=== PATIENT | female | born 1990 | race Asian ===

== ENCOUNTER 2018-03-06 07:01 | Inpatient (IN) | payer SELFPAY ==
[~2018-03-06] VITALS: Ht 152.4 cm; Wt 75.3 kg
[2018-03-13] MEDS ORDERED: NALBUPHINE 10 MG/ML AMP IVP PRN (01:00)
[2018-03-13] MEDS ORDERED: PROMETHAZINE 25 MG/ML VIAL IVP PRN (01:00)
[2018-03-13] MEDS ORDERED: OXYTOCIN 20 UNITS in LACTATED RINGERS 1,000 ML IV SCH (01:00)
[2018-03-13] MEDS ORDERED: METHYLERGONOVINE 0.2 MG/ML AMP IM PRN ×2 (01:00→07:40)
[2018-03-13 01:25] LABS: APPEARANCE,URINE SL CLOUDY (CLEAR); BILIRUBIN,URINE NEGATIVE (NEGATIVE); BLOOD, URINE NEGATIVE (NEGATIVE); COLOR,URINE YELLOW (YELLOW); LEUKOCYTE ESTERASE ,URINE 2+ (NEGATIVE); NITRITE, URINE NEGATIVE (NEGATIVE); PH,URINE 7.5 (5.0-9.0); UGLUCOSE NEGATIVE (NEGATIVE)
[2018-03-13 01:26] LABS: HEMATOCRIT 36.4 % (36-48); HEMOGLOBIN 11.9 g/dL (12.0-16.0); MEAN CORPUSCULAR VOLUME 83.7 fL (80-94); RED BLOOD CELL COUNT(AUTO) 4.34 MIL/uL (4.20-5.40); WHITE BLOOD COUNT (AUTO) 9.8 K/uL (4.8-10.8)
[2018-03-13 01:27] LABS: BASOPHILS % (AUTO) 0.7 % (0.0-2.0); EOSINOPHILS % (AUTO) 0.8 % (0.0-4.0); LYMPHOCYTES % (AUTO) 15.9 % (20.5-51.1); MEAN CORPUSCULAR HEMOGLOBIN 27 pg (27-31); MEAN CORPUSCULAR HGB CONC 33 g/dL (33-37); MONOCYTES % (AUTO) 7.9 % (1.7-9.3); NEUTROPHILS % (AUTO) 74.7 % (42.2-75.2); PLATELET COUNT (AUTO) 172 K/uL (140-450); RED CELL DISTRIBUTION WIDTH 12.6 % (11.6-13.7)
[2018-03-13 01:28] LABS: BASOPHILS # (AUTO) 0.1 K/uL (0.00-0.22); EOSINOPHILS # (AUTO) 0.1 K/uL (0-0.4); LYMPHOCYTES # (AUTO) 1.6 K/uL (2.5-16.5); MONOCYTES # (AUTO) 0.8 K/uL (0.8-1.0); NEUTROPHILS # (AUTO) 7.2 K/uL (1.8-7.7)
[2018-03-13] MEDS: LACTATED RINGERS 1,000 ML IV SCH ×5 (01:54→13:51)
[2018-03-13] MEDS ORDERED: MISOPROSTOL 25 MCG TAB ONE (01:55)
[2018-03-13] MEDS ORDERED: OXYTOCIN 10 UNITS/ML VIAL IM SCH (02:00)
[2018-03-13 03:06] LABS: RBC,URINE 0-5 (RARE) /HPF (0-5); WBC,URINE 16-25 (MOD) /HPF (0-5)
[2018-03-13] MEDS ORDERED: ROPIVACAINE 0.2%/NS PREMIX 250 ML EPI ONE ×2 (04:59→15:12)
[2018-03-13] MEDS ORDERED: AZITHROMYCIN 500 MG in DEXTROSE 5% 250 ML IV ONE (06:05)
[2018-03-13] MEDS ORDERED: OXYTOCIN 20 UNITS/LR PREMIX 1,000 ML IV ONE ×2 (06:57→23:38)
[2018-03-13] MEDS ORDERED: TEMAZEPAM 15 MG CAP PO PRN (07:40)
[2018-03-13] MEDS ORDERED: BENZOCAINE/MENTHOL 20%-0.5% 60 GM CAN TP PRN (07:40)
[2018-03-13] MEDS ORDERED: oxyCODONE/APAP 5/325 MG 1 TAB TAB PO PRN (07:40)
[2018-03-13] MEDS ORDERED: MEASLES, MUMPS, AND RUBELLA 1 VIAL SQVAC PRN (07:40)
[2018-03-13] MEDS ORDERED: OXYTOCIN 10 UNITS/ML VIAL IM PRN (07:40)
[2018-03-13 08:06] VITALS: BP 101/55
--- NOTE | 2018-03-13 08:10 | NUR ---
PATIENT HAS BEEN SCREENED AND CATEGORIZED LOW NUTRITION RISK. PATIENT WILL BE SEEN WITHIN 7 DAYS OF ADMISSION. 03/19/[address]
[2018-03-13] MEDS ORDERED: AMPICILLIN 2,000 MG VIAL ONE ×2 (13:50→20:02)
[2018-03-13] MEDS ORDERED: DOCUSATE SOD/SENNA 50/8.6 MG 1 TAB PO SCH (21:00)
[2018-03-13] MEDS ORDERED: OXYTOCIN 10 UNITS/ML VIAL ONE (21:04)
[2018-03-13] MEDS ORDERED: oxyCODONE/APAP 5/325 MG 1 TAB TAB ONE (21:45)
[2018-03-13] MEDS ORDERED: METHYLERGONOVINE 0.2 MG/ML AMP ONE (23:23)
[2018-03-13] MEDS ORDERED: CARBOPROST 250 MCG/ML AMP IM ONE (23:36)
[2018-03-14] MEDS: IBUPROFEN 800 MG TAB PO PRN ×3 (02:32→20:40)
[2018-03-14 08:57] LABS: HEMOGLOBIN 11.1 g/dL (12.0-16.0)
[2018-03-14] MEDS: HYDROcodone/APAP 5/325 MG 1 TAB TAB PO PRN (14:25)
[2018-03-15] MEDS: HYDROcodone/APAP 5/325 MG 1 TAB TAB PO PRN (04:25)
[2018-03-15] MEDS: IBUPROFEN 800 MG TAB PO PRN ×2 (12:52→18:47)
== END 2018-03-15 22:45 | disposition home or self-care (01) | DRG 775 ==
LOC: MLD 03-13 00:20 → MFCC 03-14 01:45
PROVIDERS: ADMIT Obstetrics & Gynecology; ATTEND Obstetrics & Gynecology
PROC: 10E0XZZ Delivery of Products of Conception, External Approach (ICD-10-PCS; principal; 2018-03-13)
PROC: 0KQM0ZZ Repair Perineum Muscle, Open Approach (ICD-10-PCS; 2018-03-13)
PROC: 0KQM0ZZ Repair Perineum Muscle, Open Approach (ICD-10-PCS; 2018-03-13)
PROC: 3E0R3BZ Introduction of Anesthetic Agent into Spinal Canal, Percutaneous Approach (ICD-10-PCS; 2018-03-13)
PROC: 00HU33Z Insertion of Infusion Device into Spinal Canal, Percutaneous Approach (ICD-10-PCS; 2018-03-13)
PROC: 10907ZC Drainage of Amniotic Fluid, Therapeutic from Products of Conception, Via Natural or Artificial Opening (ICD-10-PCS; 2018-03-13)
PROC: 3E0234Z Introduction of Serum, Toxoid and Vaccine into Muscle, Percutaneous Approach (ICD-10-PCS; 2018-03-15)
DX: O48.0 Post-term pregnancy (principal); O71.4 Obstetric high vaginal laceration alone; Z3A.41 41 weeks gestation of pregnancy; Z37.0 Single live birth; O70.1 Second degree perineal laceration during delivery; Z23 Encounter for immunization
CPT/HCPCS: 36415; 51702; 59200; 81001; 85018; 85025; 86592; 86886; 86900; 86901; 87086; 90715; C1758; J0290; J0456; J2210; J2590; J2795; J3490; J7030; J7060; J7120